=== PATIENT | female | born 1990 | race Caucasian/White ===

== ENCOUNTER 2019-11-19 16:04 | Observation (INO) ==
[2019-11-19] MEDS ORDERED: ONDANSETRON 4 MG/2 ML VIAL IV PRN (16:16)
[2019-11-19] MEDS ORDERED: MEPERIDINE 50 MG/1 ML VIAL IV PRN (16:16)
[2019-11-19] MEDS: LACTATED RINGERS 1,000 ML IV SCH ×2 (16:36→18:29)
[2019-11-19 16:48] LABS: Basophils % 0.3 % (0.0-0.8); Eosinophils # 0.1 10*3/uL (0.0-0.87); Eosinophils % 0.3 % (0.00-10.9); Hematocrit 36.7 VOL% (35.7-47.0); Hemoglobin 12.2 GM/DL (12.0-16.0); Immature Granulocytes % 0.5 %; Immature Granulocytes Absolute 0.08 #; Lymphocytes # 0.9 10*3/uL (1.4-4.0); Lymphocytes % 6.2 % (21.3-54.2); Mean Corpuscular HGB Conc 33.2 GM/DL (32-36); Mean Corpuscular Volume 87.6 FL (87-102); Mean Platelet Volume 9.3 FL (9.6-12.0); Monocytes % 4.5 % (1.7-12.7); Neutrophils % 88.2 % (38.7-73.9); Platelet Count 225 T/CUMM (130-400); Red Blood Count 4.19 MC/CUMM (3.8-5.5); Red Cell Distribution Width 13.2 % (9.3-17.3); White Blood Count 14.8 T/CUMM (4-12)
[2019-11-19] MEDS ORDERED: BUTORPHANOL 2 MG/ML VIAL IV ONE (17:38)
[2019-11-19] MEDS ORDERED: ONDANSETRON 4 MG/2 ML VIAL IV ONE (17:44)
[2019-11-19] MEDS ORDERED: OXYTOCIN/LR 20 UNIT/1,000 ML BAG IV ONE (17:50)
[2019-11-19] MEDS ORDERED: CITRIC ACID/SODIUM CITRATE 30 ML UDCUP PO ONE (17:57)
[2019-11-19] MEDS ORDERED: hydrOXYzine HCL 25 MG/1 ML VIAL IM PRN (17:57)
[2019-11-19] MEDS ORDERED: ePHEDrine 50 MG/ML VIAL IV PRN (17:57)
[2019-11-19] MEDS ORDERED: PROMETHAZINE 25 MG/1 ML VIAL IM ONE (17:57)
[2019-11-19] MEDS ORDERED: diphenhydrAMINE 50 MG/1 ML VIAL IV PRN (17:57)
[2019-11-19] MEDS ORDERED: FAMOTIDINE 20 MG/2 ML VIAL IV ONE (17:57)
[2019-11-19] MEDS ORDERED: NALOXONE 0.4 MG/ML VIAL IV PRN (17:57)
[2019-11-19] MEDS: fentaNYL 2 MCG/ROPIV 0.2% EPID 100 ML EPIDURAL SCH (18:45)
[2019-11-19] MEDS ORDERED: miSOPROStoL 200 MCG TABLET PO SCH (19:00)
[2019-11-19] MEDS: AMPICILLIN INJ 2,000 MG in SODIUM CHLORIDE 0.9% 100 ML IV SCH (19:12)
[2019-11-19 21:02] LABS: Barbiturates Screen,Urine Negative (Negative); Benzodiazepines Screen,Urine Negative (Negative); Cannabinoid Screen,Urine Negative (Negative); Opiate Screen,Urine Negative (Negative); Phencyclidine Screen,Urine Negative (Negative)
[2019-11-19 21:33] LABS: Bilirubin,Urine Negative (Negative); Blood, Urine Negative (Negative); Glucose,Urine (UA) Negative (Negative); Ketones,Urine Negative (Negative); Nitrite,Urine Negative (Negative); Protein,Urine Negative; Urine Appearance CLEAR (Clear); Urine Color Colorless (Yellow); Urine Urobilinogen < 2.0 EU/DL (0.2-1.0)
[2019-11-20] MEDS: fentaNYL 2 MCG/ROPIV 0.2% EPID 100 ML EPIDURAL SCH (01:12)
[2019-11-20] MEDS: AMPICILLIN INJ 2,000 MG in SODIUM CHLORIDE 0.9% 100 ML IV SCH (02:00)
[2019-11-20] MEDS: LACTATED RINGERS 1,000 ML IV SCH (03:33)
[2019-11-20] MEDS ORDERED: ceFAZolin 2,000 MG in PREMIX 1 EACH IV ONE (08:06)
[2019-11-20] MEDS ORDERED: LIDOCAINE MPF 2% /EPI 20 ML VIAL ONE (10:45)
[2019-11-20] MEDS ORDERED: MIDAZOLAM 2 MG/2 ML VIAL ONE (10:45)
[2019-11-20 11:09] VITALS: BP 116/61
[2019-11-20] MEDS ORDERED: IBUPROFEN 800 MG TABLET PO ONE (12:44)
== END 2019-11-20 14:20 | disposition home or self-care (01) ==
LOC: N.OB → N.LD 17:50
PROVIDERS: ADMIT Obstetrics & Gynecology; ATTEND Obstetrics & Gynecology